=== PATIENT | female | born 1950 | race African-American/Black ===

== ENCOUNTER 2019-04-17 12:22 | Emergency (ER) | payer MEDICARE ==
[~2019-04-17] VITALS: Ht 157.5 cm; Wt 69.5 kg
--- NOTE | 2019-04-17 13:12 | PHYS DOC ---
Past Medical History Past Medical History: Hypertension, Hypothyroid Past Surgical History: No Surgical History Smoking Status: Never Smoker Alcohol Use: Occasionally Adult General Chief Complaint Chief Complaint: MECHANICAL FALL HPI HPI Patient is a 68 year old female who presents via EMS secondary to right ankle pain. Patient states that she was using her walker this morning when it malfunctioned and she fell on the ground. Does not recall striking her head or loss of consciousness. She did twist her right ankle in the process. Denies pain elsewhere. Currently her pain is moderate and worse with trying to ambulate. She states that her ankle has become more stiff throughout the morning. No medications taken prior to arrival. No numbness or tingling distally. Review of Systems Review of Systems All other systems were reviewed and found to be within normal limits, except as documented in this note. Allergies Allergies Allergies Coded Allergies Type Severity Reaction Last Updated Verified No Known Drug Allergies 04/17/19 No Physical Exam Physical Exam Constitutional: Well developed, well nourished, no acute distress, non-toxic appearance. [] HENT: Normocephalic, atraumatic, bilateral external ears normal, oropharynx moist, no oral exudates, nose normal. [] Eyes: PERRLA, EOMI, conjunctiva normal, no discharge. [] Neck: Normal range of motion, no tenderness, supple, no stridor. [] Cardiovascular:Heart rate regular rhythm, no murmur. NO pulse deficit Lungs & Thorax: Bilateral breath sounds clear to auscultation [] Abdomen: Bowel sounds normal, soft, no tenderness, no masses, no pulsatile masses. [] Skin: Warm, dry, no erythema, no rash. [] Back: No tenderness, no CVA tenderness. [] Extremities: Right ankle is moderately swollen with tenderness to palpation on the medial and lateral malleolus. Neurologic: Alert and oriented X 3, normal motor function, normal sensory function, no focal deficits noted. [] Psychologic: Affect normal, judgement normal, mood normal. [] Current Patient Data Vital Signs Vital Signs Date Time Temp Pulse Resp B/P (MAP) Pulse Ox O2 Delivery O2 Flow Rate FiO2 04/17/19 12:35 98.4 86 16 140/71 (94) 97 Room Air 98.4 EKG EKG [] Radiology/Procedures Radiology/Procedures EXAM: Right ankle, 3 views. HISTORY: Pain. COMPARISON: None. FINDINGS: 3 views of the right ankle are obtained. There is a mildly displaced distal fibular metaphyseal fracture with approximately one third of a shaft width displacement along the main fracture line. There is widening of the medial ankle mortise. There is a tiny ossicle inferior to the medial malleolus which may be due to an avulsion fracture of uncertain chronicity. No osteochondral lesion is seen. There is diffuse soft tissue swelling. There is a small plantar spur. IMPRESSION: 1. Mildly displaced distal fibular metaphyseal fracture. 2. Tiny ossicle inferior to the medial malleolus, possibly due to an avulsion fracture of uncertain chronicity. 3. Diffuse ankle soft tissue swelling. [] Course & Med Decision Making Course & Med Decision Making Pertinent Labs and Imaging studies reviewed. (See chart for details) Patient seen for mechanical fall. Pain to the right ankle. X-rays are performed which revealed a minimally displaced distal fibular fracture. I spoke with Dr. Quinonez, orthopedics, who recommends a cam boot and weightbearing as tolerated. Patient will continue to use her walker and follow-up in one week. We'll provide a prescription for hydrocodone and she can also use Profen and/or Tylenol. Dragon Disclaimer Dragon Disclaimer This electronic medical record was generated, in whole or in part, using a voice recognition dictation system. Departure Departure Impression: Primary Impression: Fall Additional Impression: Closed fracture of right distal fibula Disposition: 01 HOME, SELF-CARE Condition: STABLE Referrals: SOBEIDA QUINONEZ MD Call Dr. Quinonez for follow up appointment; you will follow up in 1 week. Patient Instructions: Tibial and Fibular Fracture, Adult Additional Instructions: You may use tylenol and motrin for pain as well. Scripts Hydrocodone/Apap 5-325 (NORCO 5-325 TABLET) 1 Each Tablet 1 TAB PO PRN Q6HRS PRN for PAIN, #20 TAB 0 Refills Prov: WILMA DOVER DO 04/17/19 Problem Qualifiers WILMA DOVER DO Apr 17, 2019 13:12
--- NOTE | 2019-04-17 13:35 | RAD ---
EXAM: Right ankle, 3 views. HISTORY: Pain. COMPARISON: None. FINDINGS: 3 views of the right ankle are obtained. There is a mildly displaced distal fibular metaphyseal fracture with approximately one third of a shaft width displacement along the main fracture line. There is widening of the medial ankle mortise. There is a tiny ossicle inferior to the medial malleolus which may be due to an avulsion fracture of uncertain chronicity. No osteochondral lesion is seen. There is diffuse soft tissue swelling. There is a small plantar spur. IMPRESSION: 1. Mildly displaced distal fibular metaphyseal fracture. 2. Tiny ossicle inferior to the medial malleolus, possibly due to an avulsion fracture of uncertain chronicity. 3. Diffuse ankle soft tissue swelling. Electronically signed by: Kati Trujillo MD (04/17/2019 1:32 PM) [facility] [place]
[2019-04-17 14:30] VITALS: BP 156/75
[2019-04-17] MEDS ORDERED: HYDR-3164 PO (14:30)
== END 2019-04-17 15:32 | disposition home or self-care (01) ==
LOC: ER 12:22
DX: S82.831A Other fracture of upper and lower end of right fibula, initial encounter for closed fracture (principal); I10 Essential (primary) hypertension; E03.9 Hypothyroidism, unspecified; X50.9XXA Other and unspecified overexertion or strenuous movements or postures, initial encounter; Y93.89 Activity, other specified; Y92.89 Other specified places as the place of occurrence of the external cause; Y99.8 Other external cause status
CPT/HCPCS: 73610; 99284